=== PATIENT | male | born 1985 | race African-American/Black ===

== ENCOUNTER 2018-11-03 16:07 | Emergency (ER) | payer OTHER ==
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
[2018-11-03 16:17] VITALS: BP 119/58; PULSE 81; TEMP 98.9; BMI 37.2
[2018-11-03] MEDS ORDERED: KETOROLAC TROMETHAMINE 60 MG/2 ML VIAL IM ONE (17:04)
[2018-11-03] MEDS ORDERED: KETOROLAC TROMETHAMINE 60 MG/2 ML VIAL ONE (17:08)
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
== END 2018-11-03 17:14 | disposition home or self-care (01) ==
LOC: JERFT 16:07
PROC: 3E0233Z Introduction of Anti-inflammatory into Muscle, Percutaneous Approach (ICD-10-PCS; principal; 2018-11-03)
DX: S39.012A Strain of muscle, fascia and tendon of lower back, initial encounter (principal); V43.52XA Car driver injured in collision with other type car in traffic accident, initial encounter; Y93.89 Activity, other specified; Y92.410 Unspecified street and highway as the place of occurrence of the external cause; F17.210 Nicotine dependence, cigarettes, uncomplicated
CPT/HCPCS: 99281-25

== ENCOUNTER 2021-07-12 20:08 | Emergency (ER) | payer OTHER ==
[2021-07-12] MEDS ORDERED: ACETAMINOPHEN 1000 MG/100 ML BAG IVPB ONE (20:13)
[2021-07-12] MEDS ORDERED: morphine CARPU-JECT 4 MG/1 ML DISP.SYRIN IVPUSH ONE (20:14)
[2021-07-12 20:17] VITALS: TEMP 97.6; BMI 39.5
[2021-07-12] MEDS ORDERED: ACETAMINOPHEN INJECTION 100 ML IVPB ONE ×2 (20:32→20:36)
[2021-07-12] MEDS ORDERED: morphine SULFATE 4 MG/ML VIAL ONE ×2 (20:32→20:36)
[2021-07-12] MEDS ORDERED: SODIUM CHLORIDE 0.9% 500 ML INFUS.BAG IV ONE (20:42)
[2021-07-12] MEDS ORDERED: morphine CARPU-JECT 2 MG/1 ML DISP.SYRIN IVPUSH ONE (20:42)
[2021-07-12] MEDS ORDERED: KETOROLAC TROMETHAMINE 30 MG/1 ML VIAL IVPUSH ONE (20:42)
[2021-07-12] MEDS ORDERED: KETOROLAC TROMETHAMINE 30 MG/1 ML VIAL ONE (20:43)
[2021-07-12] MEDS ORDERED: PROPOFOL 200 MG/20 ML VIAL IVPUSH ONE (21:18)
[2021-07-12] MEDS ORDERED: PROPOFOL 1,000,000 MCG/100 ML VIAL ONE (21:20)
[2021-07-12] MEDS ORDERED: ACETAMINOPHEN 325 MG TABLET (FP) PO ONE (23:04)
[2021-07-12] MEDS ORDERED: ACETAMINOPHEN 325 MG TABLET (FP) ONE (23:13)
[2021-07-12 23:57] VITALS: BP 148/98; PULSE 77
== END 2021-07-12 23:37 | disposition home or self-care (01) ==
LOC: JER 20:08
PROC: 0RSK4ZZ Reposition Left Shoulder Joint, Percutaneous Endoscopic Approach (ICD-10-PCS; principal; 2021-07-12)
PROC: 3E0333Z Introduction of Anti-inflammatory into Peripheral Vein, Percutaneous Approach (ICD-10-PCS; 2021-07-12)
PROC: 3E0333Z Introduction of Anti-inflammatory into Peripheral Vein, Percutaneous Approach (ICD-10-PCS; 2021-07-12)
PROC: 3E033NZ Introduction of Analgesics, Hypnotics, Sedatives into Peripheral Vein, Percutaneous Approach (ICD-10-PCS; 2021-07-12)
PROC: 3E033NZ Introduction of Analgesics, Hypnotics, Sedatives into Peripheral Vein, Percutaneous Approach (ICD-10-PCS; 2021-07-12)
PROC: 3E033GC Introduction of Other Therapeutic Substance into Peripheral Vein, Percutaneous Approach (ICD-10-PCS; 2021-07-12)
DX: S43.005A Unspecified dislocation of left shoulder joint, initial encounter (principal); Y35.811A Legal intervention involving manhandling, law enforcement official injured, initial encounter
CPT/HCPCS: 73030-TC-LT-FY; 73060-TC-LT-FY; 73070-TC-LT-FY; 99285-25; J0131

== ENCOUNTER 2022-08-07 13:02 | Emergency (ER) | payer OTHER ==
[2022-08-07 13:07] VITALS: BP 133/69; PULSE 94; RESP 19; TEMP 98.6; BMI 39.1
[2022-08-07] MEDS ORDERED: IBUPROFEN 400 MG TABLET (FP) PO ONE ×2 (13:36→13:38)
[2022-08-07] MEDS ORDERED: ACETAMINOPHEN 500 MG TABLET (FP) PO ONE (13:37)
[2022-08-07] MEDS ORDERED: ACETAMINOPHEN 500 MG TABLET (FP) ONE (13:38)
== END 2022-08-07 15:18 | disposition home or self-care (01) ==
LOC: JERFT 13:02
DX: J02.9 Acute pharyngitis, unspecified (principal)
CPT/HCPCS: 0241U-QW; 99283-25